=== PATIENT | female | born 1960 | race Caucasian/White ===

== ENCOUNTER → 2016-11-13 | Day surgery (SDC) | payer OTHER | END | disposition home or self-care (01) | LOC: FAS 07:56 | DX: L72.0 Epidermal cyst (principal); F41.9 Anxiety disorder, unspecified; K29.60 Other gastritis without bleeding; F32.9 Major depressive disorder, single episode, unspecified; K21.9 Gastro-esophageal reflux disease without esophagitis; Z88.8 Allergy status to other drugs, medicaments and biological substances; Z90.49 Acquired absence of other specified parts of digestive tract; Z90.710 Acquired absence of both cervix and uterus; Z87.891 Personal history of nicotine dependence | CPT/HCPCS: 88304; J1100; J2704; J2765; J3010 ==